=== PATIENT | male | born 1945 | race Caucasian/White ===

== ENCOUNTER → 2016-09-17 | Outpatient (CLI) | payer OTHER, BC ==
--- NOTE | 2016-09-17 11:55 | EKG ---
[address] [address] Measurements Intervals [place] Rate: 51 P: 263 VT: 133 QRS: -10 QRSD: 110 T: 55 QT: 428 QTc: 405 Interpretive Statements JUNCTIONAL BRADYCARDIA SLOW R WAVE PROGRESSION V1-V3 No previous ECG available for comparison Electronically Signed On 09-17-16 17:25:44 MDT by Bright Gardner [id number]
== END ==
LOC: MOB EKG 11:46
PROVIDERS: ATTEND Specialist
DX: I48.0 Paroxysmal atrial fibrillation (principal); R07.9 Chest pain, unspecified; R00.1 Bradycardia, unspecified
CPT/HCPCS: 93005; 93010; 99204; G0463

== ENCOUNTER → 2016-10-22 | Outpatient (CLI) | payer OTHER, BC ==
--- NOTE | 2016-10-22 09:02 | EKG ---
[address] [address] Measurements Intervals [place] Rate: 51 P: 266 CO: 122 QRS: 15 QRSD: 105 T: 56 QT: 432 QTc: 409 Interpretive Statements JUNCTIONAL BRADYCARDIA ABNORMAL RHYTHM ECG Compared to ECG 09/17/2016 11:56:15 Poor R-wave progression no longer present Electronically Signed On 10-22-16 13:51:02 MDT by Bright Gardner [id number]
[2016-10-22 11:18] LABS: CHOL/HDL RATIO 5.39 RATIO (0-4.0); LDL CHOLESTEROL,CALCULATED 158.8 mg/dL
[2016-10-22 11:19] LABS: CALCIUM 10.3 mg/dL (8.7-10.7); MAGNESIUM 1.9 mg/dL (1.6-2.4)
== END ==
LOC: MOB LAB 08:42
PROVIDERS: ATTEND Specialist
DX: I48.0 Paroxysmal atrial fibrillation (principal); I10 Essential (primary) hypertension; R00.1 Bradycardia, unspecified; I25.119 Atherosclerotic heart disease of native coronary artery with unspecified angina pectoris; Z79.01 Long term (current) use of anticoagulants
CPT/HCPCS: 36415; 80048; 80061; 83735; 93005; 93010; 99214; G0463